=== PATIENT | female | born 1955 | race Caucasian/White ===

== ENCOUNTER 2017-11-17 08:55 | Outpatient (CLI) | payer BC ==
--- NOTE | 2017-11-18 13:36 | Mammography Report ---
DIGITAL SCREENING MAMMOGRAM: 11/17/2017 CLINICAL INDICATION: A 62-year-old with history of late childbearing, for screening. COMPARISON: 11/2015, 12/2010, 04/2009. TECHNIQUE: Routine CC and MLO projections were obtained of the breasts. FINDINGS: The breasts demonstrate heterogeneously dense fibroglandular parenchyma bilaterally. Punctate, typically benign calcifications are present. No suspicious masses, clustered microcalcifications, or regions of architectural distortion are identified. IMPRESSION: BENIGN FINDINGS. RECOMMENDATION: ROUTINE ANNUAL SCREENING UNLESS OTHERWISE CLINICALLY INDICATED. BIRADS CATEGORY 2-BENIGN FINDINGS. STANDARD QUALIFYING STATEMENTS: 1. This examination was reviewed with the aid of Computer-Aided Detection (CAD). 2. A negative or benign imaging report should not delay biopsy if clinically suspicious findings are present. Consider surgical consultation if warranted. More than 5% of cancers are not identified by imaging. 3. Dense breasts may obscure an underlying neoplasm. TD: 11/18/2017 13:34
== END 2017-11-17 08:56 | disposition home or self-care (01) ==
LOC: DI.S 08:55
PROVIDERS: ATTEND Physician Assistant
DX: Z12.31 Encounter for screening mammogram for malignant neoplasm of breast (principal)
CPT/HCPCS: 77067

== ENCOUNTER 2017-11-17 08:58 | Outpatient (CLI) | payer BC ==
--- NOTE | 2017-11-17 17:31 | XRAY Report ---
TWO VIEW CHEST: 11/17/2017 CLINICAL INDICATION: Cough, exposure to chemicals. FINDINGS: Frontal and lateral views of the chest demonstrate a normal cardiac silhouette. The lungs are clear. No effusion or pneumothorax is present. IMPRESSION: NORMAL CHEST. TD: 11/17/2017 17:30
== END 2017-11-17 08:59 | disposition home or self-care (01) ==
LOC: DI.S 08:58
PROVIDERS: ATTEND Physician Assistant
DX: R05 Cough (principal); Z77.098 Contact with and (suspected) exposure to other hazardous, chiefly nonmedicinal, chemicals
CPT/HCPCS: 71046

== ENCOUNTER 2018-04-30 08:50 | Outpatient (CLI) | payer BC ==
--- NOTE | 2018-04-30 09:48 | XRAY Report ---
Procedure Date: 04/30/2018 Accession Number: [id number] / [id number] Procedure: XRS - Hip w/Pelvis 2-3V LT CPT Code: FULL RESULT: EXAM: Hip w/Pelvis 2-3V LT DATE: 04/30/2018 9:13 AM CLINICAL HISTORY: PAIN IN LEFT HIP,CRAMP AND SPASM COMPARISON: None. TECHNIQUE: 1 view of the pelvis and 1 view of the hip. FINDINGS: Bones: Normal. No fracture or bone lesion. Joints: The bilateral hip, pubis symphysis, and sacroiliac joints are preserved. Soft Tissues: Normal. No soft tissue swelling. IMPRESSION: Normal pelvis and hip radiography. RADIA
--- NOTE | 2018-04-30 09:51 | XRAY Report ---
Procedure Date: 04/30/2018 Accession Number: [id number] / [id number] Procedure: XRS - Lumbar Spine 2 View CPT Code: FULL RESULT: EXAM: Lumbar Spine 2 View DATE: 04/30/2018 9:13 AM CLINICAL HISTORY: PAIN IN LEFT HIP,CRAMP AND SPASM COMPARISON: 09/22/2012. TECHNIQUE: 2 views. FINDINGS: Alignment: Mild levoconvex thoracolumbar scoliosis, increased compared to 2011. No listhesis. Bones: Five [id number] lumbar vertebral bodies are present. No fractures or bone lesions. Disks: Normal. Disk heights are maintained. Facets: Mild facet arthropathy at the L4-5. Question pars defect L L4 and L5. Sacroiliac Joints: Unremarkable. Soft Tissues: Normal. The visualized bowel gas pattern is normal. IMPRESSION: Mild facet arthropathy with questionable pars defect at L4 and L5. Mild levoconvex thoracolumbar scoliosis. RADIA
== END 2018-04-30 08:51 | disposition home or self-care (01) ==
LOC: DI.S 08:50
PROVIDERS: ATTEND Nurse Practitioner Family
DX: M25.552 Pain in left hip (principal); M47.896 Other spondylosis, lumbar region
CPT/HCPCS: 72100

== ENCOUNTER 2019-02-14 16:17 | Emergency (ER) | payer BC ==
[2019-02-14 16:32] VITALS: BP 126/79
--- NOTE | 2019-02-14 17:34 | XRAY Report ---
Reason: pain Procedure Date: 02/14/2019 Accession Number: [id number] / [id number] Procedure: XR - Wrist 4 View RT CPT Code: FULL RESULT: EXAM: RIGHT WRIST RADIOGRAPHY EXAM DATE: 02/14/2019 04:43 PM. CLINICAL HISTORY: Pain. Hyperextension/traction injury today. Wrist pulled by a horse. COMPARISON: None. TECHNIQUE: 3 views. FINDINGS: Bones: Normal. No fractures or bone lesions. Joints: Mild degenerative arthritic change at radial aspect of wrist and at the MCP joint of the thumb. No subluxations. Soft Tissues: Mild soft tissue swelling in distal forearm/wrist. IMPRESSION: 1. Mild soft tissue swelling at the wrist. No fracture or dislocation. 2. Mild degenerative changes at radial aspect of wrist and at base of thumb. RADIA
--- NOTE | 2019-02-14 17:34 | ED Physician Documentation ---
PD HPI UPPER EXT INJURY - Stated complaint Stated Complaint: R WRIST INJ - Chief complaint Chief Complaint: Ext Problem - History of Present Illness Location: Right (Her horse was spooked and running and it kind of ran into her been to her right wrist back) Type of injury: Blunt / blow Where injury occurred: Home Timing - onset: Today Review of Systems Constitutional: reports: Reviewed and negative Throat: reports: Reviewed and negative Respiratory: reports: Reviewed and negative PD PAST MEDICAL HISTORY - Present Medications Home Medications: Ambulatory Orders Medication Instructions Recorded Confirmed Cholecalciferol (Vitamin D3) 5,000 unit PO 03/17/14 03/17/14 [Vitamin D3] Levothyroxine Sodium [Levoxyl] 150 mcg PO 03/17/14 03/17/14 - Allergies Allergies/Adverse Reactions: Allergies Allergy/AdvReac Type Severity Reaction Status Date / Time codeine Allergy Unknown Verified 02/14/19 16:33 PD ED PE NORMAL - Vitals Vital signs reviewed: Yes - General General: Alert and oriented X 3, No acute distress - Extremities Extremities: Other (Mild tenderness to palpation and bruising over the distal dorsal radius without deformity. Somewhat limited range of motion in flexion and extension as well as deviation to either side. No tenderness of the hand or elbow. Normal neurovascular function in the hand.) - Neuro Neuro: Alert and oriented X 3, Normal speech Results - Vitals Vitals: Vital Signs - 24 hr 02/14/19 16:29 Heart Rate 70 Respiratory 14 Rate Blood Pressure 126/79 O2 Saturation 97 Oxygen O2 Source Room air - Rads (name of study) R wrist 4v Radiology: EMP read contemporaneously (EFRAÍN, JERSON) Departure - Departure Disposition: 01 Home, Self Care Clinical Impression: Right wrist sprain Condition: Good Record reviewed to determine appropriate education?: Yes Instructions: ED Sprain Wrist Comments: Recheck with your doctor in a week if not better, return for new worsening symptoms. You can wear the splint as needed for comfort. Tylenol or ibuprofen as needed for pain. Discharge Date/Time: 02/14/19 17:53
== END 2019-02-14 17:53 | disposition home or self-care (01) ==
LOC: ED 16:17
DX: S63.501A Unspecified sprain of right wrist, initial encounter (principal); W55.12XA Struck by horse, initial encounter; Y92.009 Unspecified place in unspecified non-institutional (private) residence as the place of occurrence of the external cause; M19.031 Primary osteoarthritis, right wrist
CPT/HCPCS: 99282; 99283

== ENCOUNTER 2019-12-23 16:32 | Outpatient (CLI) | payer MEDICARE, OTHER | END 2019-12-23 16:33 | disposition short-term general hospital (02) | LOC: EMS 16:32 | PROVIDERS: ATTEND Surgery | DX: S59.911A Unspecified injury of right forearm, initial encounter (principal); M25.551 Pain in right hip; V80.010A Animal-rider injured by fall from or being thrown from horse in noncollision accident, initial encounter; Y93.52 Activity, horseback riding; Y92.838 Other recreation area as the place of occurrence of the external cause | CPT/HCPCS: A0425; A0427 ==

== ENCOUNTER 2020-03-30 14:07 | Outpatient (CLI) | payer MEDICARE, OTHER ==
--- NOTE | 2020-03-30 15:54 | XRAY Report ---
PROCEDURE: Forearm RT INDICATIONS: PELVIC RING, R RADIUS/ULNA FX TECHNIQUE: 2 views of the forearm were acquired. COMPARISON: None FINDINGS: Bones: No fractures or dislocations. No suspicious bony lesions. ORIF of the distal radius and uln a. Hardware is intact. Soft tissues: No suspicious soft tissue calcifications or masses. IMPRESSION: Postsurgical sequelae. No acute fracture. No osseous lesion. If symptoms and/or clinical suspicion fo r pathology continue, further assessment with repeat plain films, or advanced imaging (e.g., CT, MRI, or bone scan) is recommended for further assessment. Reviewed by: Nicolle Dawson MD on 03/30/2020 3:52 PM PDT Approved by: Nicolle Dawson MD on 03/30/2020 3:52 PM PDT Station ID: [id number]
--- NOTE | 2020-03-30 15:56 | XRAY Report ---
PROCEDURE: Pelvis 3 View INDICATIONS: PELVIC RING, R RADIUS/ULNA FX TECHNIQUE: 3 view(s) of the pelvis acquired. COMPARISON: Pelvis plain films dated 04.30.18 FINDINGS: Bones: No acute fractures or dislocations. Chronic fracture deformity of the right anterior iliac w ing. No suspicious bony lesions. Mild joint space narrowing and periarticular osteophyte formation a t the bilateral hip joints. Soft tissues: Visualized bowel gas pattern is normal. No suspicious soft tissue calcifications. IMPRESSION: Chronic right iliac wing fracture deformity. Reviewed by: Nicolle Dawson MD on 03/30/2020 3:55 PM PDT Approved by: Nicolle Dawson MD on 03/30/2020 3:55 PM PDT Station ID: [id number]
== END 2020-03-30 14:08 | disposition home or self-care (01) ==
LOC: DI 14:07
DX: S52.501D Unspecified fracture of the lower end of right radius, subsequent encounter for closed fracture with routine healing (principal); S52.601D Unspecified fracture of lower end of right ulna, subsequent encounter for closed fracture with routine healing; M84.454D Pathological fracture, pelvis, subsequent encounter for fracture with routine healing
CPT/HCPCS: 72190

== ENCOUNTER 2021-02-12 08:57 | Outpatient (CLI) | payer MEDICARE, OTHER ==
--- NOTE | 2021-02-14 08:30 | Mammography Report ---
BILATERAL DIGITAL SCREENING MAMMOGRAM 3D/2D WITH EXAGGERATED CC: 02/12/2021 CLINICAL: Routine screening. Comparison is made to exams dated: 11/17/2017 mammogram, 11/16/2015 mammogram, and 12/16/2010 mammogram - [facility]. The tissue of both breasts is heterogeneously dense. This may lower the sensitivity of mammography. No significant masses, calcifications, or other findings are seen in either breast. There has been no significant interval change. IMPRESSION: NEGATIVE There is no mammographic evidence of malignancy. A 1 year screening mammogram is recommended. This exam was interpreted at Station ID: [id number]. NOTE: For mammograms, a report in lay terms will be sent to the patient. Approximately 15% of breast malignancies will not be visualized mammographically. In the management of a palpable breast mass, a negative mammogram must not discourage biopsy of a clinically suspicious lesion. Electronically Signed By: Tj Vilchis M.D. ddp/penrad:02/12/2021 09:30:56 ACR BI-RADS Category 1: Negative 3341F PARENCHYMAL PATTERN: (D) - The breast(s) demonstrate(s) heterogeneously dense fibroglandular tray herrera. BI-RADS CATEGORY: (1) - 1 RECOMMENDATION: (ANNUAL) - Recommend routine annual screening mammography. [id number] 1 year screening LATERALITY: (B)
== END 2021-02-12 08:58 | disposition home or self-care (01) ==
LOC: DI.S 08:57
PROVIDERS: ATTEND Physician Assistant
DX: Z12.31 Encounter for screening mammogram for malignant neoplasm of breast (principal)

== ENCOUNTER 2021-07-07 08:00 | Outpatient (CLI) | payer MEDICARE, OTHER | END 2021-07-07 23:59 | disposition home or self-care (01) | LOC: LAB 08:00 | PROVIDERS: ATTEND Physician Assistant Medical | DX: K52.1 Toxic gastroenteritis and colitis (principal) | CPT/HCPCS: 81599; 87045; 87427; 87449 ==

== ENCOUNTER 2021-11-21 08:09 | Outpatient (CLI) | payer MEDICARE, OTHER ==
--- NOTE | 2021-11-21 15:49 | DEXA Report ---
PROCEDURE: Dexa Spine and/or Hip INDICATIONS: POST MENOPAUSAL TECHNIQUE: Dual energy x-ray absorptiometry (DXA) was performed on a [employer] System. Regions measur ed are the AP Spine, femoral neck, and if needed forearm. COMPARISON: None. FINDINGS: Lumbar Spine: Bone Mineral Density 0.905 g/cm/cm,T score -2.3, osteopenia Left Hip: Bone Mineral Density 0.792 g/cm/cm,T score -1.7, osteopenia Left Femoral Neck: Bone Mineral Density 0.803 g/cm/cm, T score -1.7, osteopenia (T score greater or equal to -1.0: NORMAL) (T score from -1.1 to -2.4: OSTEOPENIA) (T score less than or equal to -2.5 to: OSTEOPOROSIS) Impression: Osteopenia. Patients with diagnosis of osteoporosis or osteopenia should have regular bone mineral density assess ment. For those eligible for Medicare, routine testing is allowed once every 2 years. Testing frequ ency can be increased for patients who have rapidly progressing disease or for those who are receivin g medical therapy to restore bone mass. Reviewed by: Radha Luevano MD, PhD on 11/21/2021 3:48 PM PST Approved by: Radha Luevano MD, PhD on 11/21/2021 3:48 PM PST Station ID: [id number]
== END 2021-11-21 08:10 | disposition home or self-care (01) ==
LOC: DI 08:09
PROVIDERS: ATTEND Physician Assistant
DX: M85.89 Other specified disorders of bone density and structure, multiple sites (principal); Z78.0 Asymptomatic menopausal state

== ENCOUNTER 2022-02-26 12:16 | Outpatient (CLI) | payer MEDICARE, OTHER ==
[2022-02-27 04:10] LABS: HCV AB <0.1 s/co ratio (0.0-0.9)
== END 2022-02-26 12:17 | disposition home or self-care (01) ==
LOC: LAB.S 12:16
PROVIDERS: ATTEND Physician Assistant
DX: E03.9 Hypothyroidism, unspecified (principal); Z11.59 Encounter for screening for other viral diseases
CPT/HCPCS: 36415; 84443; 86803

== ENCOUNTER 2023-01-27 08:45 | Outpatient (CLI) | payer MEDICARE, OTHER ==
--- NOTE | 2023-01-28 09:39 | Mammography Report ---
BILATERAL DIGITAL SCREENING MAMMOGRAM 3D/2D WITH EXAGGERATED CC: 01/27/2023 CLINICAL: Routine screening. Comparison is made to exams dated: 02/12/2021 mammogram, 11/17/2017 mammogram, and 11/16/2015 mammogram - [facility]. Both breasts are heterogeneously dense, which may obscure small masses (category c / 51-75% glandular tissue). No significant masses, calcifications, or other findings are seen in either breast. There has been no significant interval change. IMPRESSION: NEGATIVE There is no mammographic evidence of malignancy. A 1 year screening mammogram is recommended. Based on the Tyrer Cuzick model (a risk assessment model) the patients lifetime risk is 8.5% and her 10 year risk is 4.7%. According to the ACR, ACS, and NCCN guidelines, an annual breast MRI exam irvin g with mammogram is recommended if the patients lifetime risk is 20% or greater. This exam was interpreted at Station ID: [id number]. NOTE: For mammograms, a report in lay terms will be sent to the patient. Approximately 15% of breast malignancies will not be visualized mammographically. In the management of a palpable breast mass, a negative mammogram must not discourage biopsy of a clinically suspicious lesion. Electronically Signed By: Kishan villalba/carlos:01/27/2023 17:27:28 letter sent: No_Letter ACR BI-RADS Category 1: Negative 3341F PARENCHYMAL PATTERN: (D) - The breast(s) demonstrate(s) heterogeneously dense fibroglandular tray herrera. BI-RADS CATEGORY: (1) - 1 Mammogram [id number] 1 year screening LATERALITY: (B)
== END 2023-01-27 08:46 | disposition home or self-care (01) ==
LOC: DI.S 08:45
PROVIDERS: ATTEND Physician Assistant
DX: Z12.31 Encounter for screening mammogram for malignant neoplasm of breast (principal)

== ENCOUNTER 2024-04-15 07:00 | Outpatient (CLI) | payer MEDICARE, OTHER ==
--- NOTE | 2024-04-15 20:55 | XRAY Report ---
PROCEDURE: Chest 2V INDICATIONS: COUGH/BRONCHITIS TECHNIQUE: 2 views of the chest were acquired. COMPARISON: CXR 11/17/2017. Lung bases on CT abdomen and pelvis 12/16/2009 FINDINGS: Surgical changes and devices: None. Lungs and pleura: No pleural effusions or pneumothorax. Minimal streaky opacity at the lung bases. P rominent lung volumes. Overall these findings appear similar. Mediastinum: Mediastinal contours appear normal. Heart size is normal. Bones and chest wall: No suspicious bony lesions. Prior left-sided rib fractures. Overlying soft ti ssues appear unremarkable. IMPRESSION: Mild streaky opacity in the lung bases. This could be seen in the setting of atelectasis, bronchitis/ bronchiectasis, or be within normal limits. The patient may benefit from CT of the chest or high resolution chest CT. Reviewed by: Kishan Danielle MD on 04/15/2024 8:54 PM PDT Approved by: Kishan Danielle MD on 04/15/2024 8:54 PM PDT Station ID: [id number]
== END 2024-04-15 23:59 | disposition home or self-care (01) ==
LOC: DI.S 07:00
PROVIDERS: ATTEND Registered Nurse
DX: J40 Bronchitis, not specified as acute or chronic (principal)